=== PATIENT | female | born 1950 | race Caucasian/White ===

== ENCOUNTER 2018-04-08 12:47 | Inpatient (IN) | payer OTHER ==
[~2018-04-08] VITALS: Ht 172.7 cm; Wt 120.8 kg
[~2018-04-08 12:47] MED LIST: ESCITALOPRAM20 MG PO; FOLIC ACID 1 MG PO; HYDRODIURIL 112.5 M1 PO
[2018-04-08 13:22] LABS: ABSOLUTE BASOPHIL COUNT 0 /CUMM (0.0-0.2); ABSOLUTE EOSINOPHIL COUNT 0 /CUMM (0.0-0.7); ABSOLUTE GRANULOCYTE CT 5.9 /CUMM (1.4-6.5); ABSOLUTE LYMPH COUNT 1.2 /CUMM (1.2-3.4); ABSOLUTE MONOCYTE COUNT 0.5 /CUMM (0.10-0.60); BASOPHIL % 0.2 % (0.0-2.0); EOSINOPHIL % 0.4 % (0-5); GRANULOCYTE % 76.7 % (42.2-75.2); HEMATOCRIT 41.8 % (37-47); MEAN CORPUSCULAR VOLUME 87.8 FL (81.0-99.0); MEAN PLATELET VOLUME 7.8 FL (7.4-10.4); PLATELET COUNT 275 /CUMM (130-400); RED BLOOD CELL CT 4.76 /CUMM (4.20-5.40); WHITE BLOOD CELL COUNT 7.7 /CUMM (4.8-10.8)
--- NOTE | 2018-04-08 13:29 | ED DYSPNEA/ASTHMA COMPLAINT ---
History of Present Illness General Chief Complaint: Dyspnea (COPD, CHF, Other) Stated Complaint: SOB X 2WEEKS Source: patient Exam Limitations: no limitations Vital Signs & Intake/Output Vital Signs & Intake/Output Vital Signs Date Time Temp Pulse Resp B/P B/P Pulse O2 O2 Flow FiO2 Mean Ox Delivery Rate 04/08 1517 98.2 117 18 112/90 96 Room Air 04/08 1426 108 18 114/80 Nasal 2.0L Cannula 04/08 1424 116 118/74 04/08 1353 116 18 118/74 96 Room Air 04/08 1334 136 124/78 04/08 1320 98.2 136 18 124/78 96 Room Air 04/08 1303 153 24 98/67 97 Allergies Uncoded Allergies: ENVIRONMENTAL ALLERGIES (08/19/11) Reconcile Medications Alirocumab (Praluent Pen) 75 MG/ML PEN.INJCTR 1 INJ SC Q 2 WEEKS CHOLESTEROL (Reported) Escitalopram Oxalate 20 MG TABLET 1 TAB PO DAILY DEPRESSION (Reported) Hydrochlorothiazide 12.5 MG TABLET 1 TAB PO DAILY WATER RETENTION (Reported) Lisinopril 10 MG TABLET 1 TAB PO DAILY HEART (Reported) Triage Note: PER PT SOB X [address] DEMARCO HAD ECHO AND EKG SENT TO ED EKG IN ED AFIB WITH RVR 150'S DENIES CP 2 WEEKS AGO SYMPTOMS STARTED AT THAT TIME Triage Nurses Notes Reviewed? yes HPI: Patient presents for evaluation of shortness of breath and elevated heart rate. Patient states that she has felt shortness of breath, worse with exertion, for about 2 weeks. She saw her paper colorer today who determined she was in rapid atrial fibrillation. She was given a dose of XARALTO and by systolic by her paper colorer in the office but her tachycardia persisted. She was asked to go to the emergency department for heart rate control. Patient denies chest pain or leg pain. She states her ankles are mildly swollen recently. She generally uses 3 pillows to sleep. Patient states she cannot feel the tachycardia so cannot state when it began. (Annamarie FIGUEROA,Jagjit Castro) Past History Travel History Traveled to [place] past 21 day No Medical History Any Pertinent Medical History? see below for history Neurological: NONE EENT: allergies Cardiovascular: VARICOSE VEINS Respiratory: NONE Gastrointestinal: NONE Hepatic: NONE Renal: NONE Musculoskeletal: NONE Psychiatric: anxiety, depression Cancer(s): colon/rectal cancer Surgical History Surgical History: colon resection Psychosocial History What is your primary language Hungarian Tobacco Use: Never used Family History Hx Contributory? No (Annamarie FIGUEROA,Jagjit Castro) Review of Systems Review of Systems Constitutional: Reports: no symptoms. EENTM: Reports: no symptoms. Respiratory: Reports: see HPI. Cardiovascular: Reports: see HPI. GI: Reports: no symptoms. Genitourinary: Reports: no symptoms. Musculoskeletal: Reports: no symptoms. Skin: Reports: no symptoms. Neurological/Psychological: Reports: no symptoms. Hematologic/Endocrine: Reports: no symptoms. Immunologic/Allergic: Reports: no symptoms. All Other Systems: Reviewed and Negative (Annamarie FIGUEROA,Jagjit Castro) Physical Exam Physical Exam Respiratory: SEE BELOW Comments: Gen.: Well-nourished, well-developed, no acute respiratory distress while at rest. Head: Normocephalic, atraumatic. Eyes: Normal inspection bilaterally Ears: Normal inspection bilaterally Nose: Normal inspection Throat/mouth : Moist mucosa Neck: Supple, full range of motion, no goiter, no JVD Heart: Regular rate and rhythm, no murmurs rubs or gallops Lungs: Clear to auscultation bilaterally with normal air entry Chest: Nontender Back: Normal range of motion Abdomen: Soft, nontender, nondistended, normal bowel sounds Extremities: Normal range of motion grossly, equal radial pulses, no cyanosis, mild pretibial pitting edema bilaterally, calves nontender Neurologic: Cranial nerves grossly intact, speech is clear Skin: warm and dry Psychiatric: Calm, cooperative, no apparent delusions or hallucinations (Annamarie FIGUEROA,Jagjit Castro) Core Measures ACS in differential dx? No CVA/TIA Diagnosis No Sepsis Present: No Sepsis Focused Exam Completed? No (Jagjit Vaz DO) Progress Initial ED EKG: rate (161), AFIB Rhythm Strip: atrial fibrillation Comments: 04/08/2018 2:16:31 PM patient remains clinically stable with a significant improvement in heart rate. Additional Lopressor ordered. 04/08/2018 2:58:01 PM patient's heart rate ranges from just over 100 to just under 120. She appears comfortable clinically. Dr. Alex schulte. 04/08/2018 3:39:34 PM patient's case discussed with Dr. Livingston who recommends continuing the Lopressor for rate control in the absence of IV Cardizem. (Annamarie FIGUEROA,Jagjit Castro) Differential Diagnosis: AMI, CHF, COPD, pneumonia Plan of Care: Orders Procedure Date/time Status Heart Healthy Diet 04/08 D Active Patient Data 04/08 1604 Active ED Holding Orders 04/08 1556 Active Admit to inpatient 04/08 1556 Active Vital Signs 04/08 1556 Active Code Status 04/08 1556 Active Add-on Test (ER Only) 04/08 1329 Active TSH REFLEX 04/08 1312 Complete TROPONIN LEVEL 04/08 1312 Complete MAGNESIUM 04/08 1312 Complete COMPREHENSIVE METABOLIC PANEL 04/08 1312 Complete CBC WITHOUT DIFFERENTIAL 04/08 1312 Complete EKG 04/08 1250 Active Laboratory Tests 04/08/18 1312: Anion Gap 13, Estimated GFR > 60, BUN/Creatinine Ratio 18.9, Glucose 103 H, Calcium 9.4, Magnesium 1.7, Total Bilirubin 0.6, AST 20, ALT 37, Alkaline Phosphatase 86, Troponin I 0.02, Total Protein 7.0, Albumin 4.1, Globulin 2.9, Albumin/Globulin Ratio 1.4, TSH &T3 &Free T4 Intrp 1.370, CBC w Diff NO MAN DIFF REQ, RBC 4.76, MCV 87.8, MCH 29.0, MCHC 33.0, RDW 13.0, MPV 7.8, Gran % 76.7 H, Lymphocytes % 16.1 L, Monocytes % 6.6, Eosinophils % 0.4, Basophils % 0.2, Absolute Granulocytes 5.9, Absolute Lymphocytes 1.2, Absolute Monocytes 0.5, Absolute Eosinophils 0, Absolute Basophils 0 (Jagjit Vaz DO) Departure Departure Condition: Stable Referrals: Thien FIGUEROA,Adrian W. Departure Forms: Customer Survey General Discharge Information (Annamarie FIGUEROA,Jagjit Castro) Departure Disposition: STILL A PATIENT Clinical Impression Primary Impression: A-fib Comments 04/08/18 S.0. TO ME , NEW ONSET AFIB. Admission Note Spoke With: Jessica FIGUEROA,Heavenly Documentation of Exam: Documentation of any treatments & extenuating circumstances including Concerns Regarding Discharge (functional status, medication knowledge or non-compliance, living conditions, etc.) that warrant an admission rather than observation: [The patient needs admission for telemetry monitoring, cardiology consultation, serial troponins Patient was signed out to me by Dr. De Luna.] (Jagjit Vaz DO) Critical Care Note Critical Care Note Critical Care Time: non-applicable (Jagjit Vaz DO)
[2018-04-08] MEDS ORDERED: LISINOPRIL10 M1 PO (14:30)
[2018-04-08] MEDS ORDERED: ESCITALOPRAM OX20 MG PO (14:30)
[2018-04-08] MEDS ORDERED: HYDROCHLOROTH12.5 M2 PO (14:30)
[2018-04-08] MEDS ORDERED: PRALUENT P75 MG/1 ML SC (14:31)
--- NOTE | 2018-04-08 14:57 | RADIOLOGY REPORT ---
EXAMINATION: XR PORTABLE CHEST CLINICAL INFORMATION: Dyspnea. Rapid atrial fibrillation. COMPARISON: 12/18/2008 TECHNIQUE: Portable frontal view of the chest was obtained. FINDINGS: The lungs are well expanded. There is no consolidation, edema, or effusion. No pneumothorax. The cardiac silhouette is enlarged, particularly at the right atrium. This is increased from the previous study 10 years prior. IMPRESSION: Clear lungs. Enlarged cardiac silhouette, particularly at the right atrium.
--- NOTE | 2018-04-08 16:08 | History & Physical ---
Kamla FIGUEROA,[facility] 04/08/18 1608: General Information and HPI MD Statement: I have seen and personally examined SHEBA ARMENDARIZ and documented this H&P. The patient is a 68 year old F who presented with a patient stated chief complaint of [shortness of breath]. Source of Information: patient Exam Limitations: no limitations History of Present Illness: 68 yo F with PMH of varicose veins, hyperlipidemia, depression and colorectal cancer s/p resection was sent to the ED by her inspector health care facilities for evaluation. According to the patient she was at her inspector health care facilities office (Dr Woods), as she had been experiencing shortness of breath on rest and exertion for the past two weeks. She had an appointment to receive an injection for her high cholesterol. This is 2nd injection. First one was two weeks ago. She states that she gets severe muscle aches with statins and hence she was started on these injections. In the office her heart rate was found to be elevated. She was given a dose of Xarelto and Bysystolic, however, her high heart rate persisted and hence she was sent in to the ED for further management. Allergies/Medications Allergies: Uncoded Allergies: ENVIRONMENTAL ALLERGIES (08/19/11) Home Med list Alirocumab (Praluent Pen) 75 MG/ML PEN.INJCTR 1 INJ SC Q 2 WEEKS CHOLESTEROL (Reported) Escitalopram Oxalate 20 MG TABLET 1 TAB PO DAILY DEPRESSION (Reported) Hydrochlorothiazide 12.5 MG TABLET 1 TAB PO DAILY WATER RETENTION (Reported) Lisinopril 10 MG TABLET 1 TAB PO DAILY HEART (Reported) Past History Travel History Traveled to [place] past 21 day No Medical History Neurological: NONE EENT: allergies Cardiovascular: VARICOSE VEINS Respiratory: NONE Gastrointestinal: NONE Hepatic: NONE Renal: NONE Musculoskeletal: NONE Psychiatric: anxiety, depression Cancer(s): colon/rectal cancer Surgical History Surgical History: colon resection Review of Systems Review of Systems Constitutional: Denies: chills, fever. EENTM: Reports: no symptoms. Cardiovascular: Reports: palpitations. Denies: chest pain. Respiratory: Reports: short of breath. GI: Reports: no symptoms. Genitourinary: Reports: no symptoms. Musculoskeletal: Reports: no symptoms. Skin: Reports: no symptoms. Neurological/Psychological: Reports: no symptoms. Exam & Diagnostic Data Last 24 Hrs of Vital Signs/I&O Vital Signs Date Time Temp Pulse Resp B/P B/P Pulse O2 O2 Flow FiO2 Mean Ox Delivery Rate 04/08 1517 98.2 117 18 112/90 96 Room Air 04/08 1426 108 18 114/80 Nasal 2.0L Cannula 04/08 1424 116 118/74 04/08 1353 116 18 118/74 96 Room Air 04/08 1334 136 124/78 04/08 1320 98.2 136 18 124/78 96 Room Air 04/08 1303 153 24 98/67 97 Intake & Output 04/08 1600 04/08 0800 04/08 0000 Intake Total 0 Output Total 0 Balance 0 Intake, Oral 0 Output, Urine 0 Patient 160 lb Weight Physical Exam General Appearance Alert, Oriented X3, Cooperative, No Acute Distress Skin No Rashes, No Breakdown Skin Temp/Moisture Exam: Warm/Dry Sepsis Skin Exam (color): Normal for Ethnicity HEENT Atraumatic Cardiovascular Normal S1, Normal S2, No Murmurs, tachycardic, irregular Lungs Clear to Auscultation, Normal Air Movement Abdomen Soft, No Tenderness Neurological Normal Speech Extremities No Edema Last 24 Hrs of Labs/Otto: Laboratory Tests 04/08/18 1312: Anion Gap 13, Estimated GFR > 60, BUN/Creatinine Ratio 18.9, Glucose 103 H, Calcium 9.4, Magnesium 1.7, Total Bilirubin 0.6, AST 20, ALT 37, Alkaline Phosphatase 86, Troponin I 0.02, Total Protein 7.0, Albumin 4.1, Globulin 2.9, Albumin/Globulin Ratio 1.4, TSH &T3 &Free T4 Intrp 1.370, CBC w Diff NO MAN DIFF REQ, RBC 4.76, MCV 87.8, MCH 29.0, MCHC 33.0, RDW 13.0, MPV 7.8, Gran % 76.7 H, Lymphocytes % 16.1 L, Monocytes % 6.6, Eosinophils % 0.4, Basophils % 0.2, Absolute Granulocytes 5.9, Absolute Lymphocytes 1.2, Absolute Monocytes 0.5, Absolute Eosinophils 0, Absolute Basophils 0 Assessment/Plan Assessment: 68 yo F with PMH of varicose veins, hyperlipidemia, depression was sent to the ED by her inspector health care facilities for evaluation. In the ED the patient received IV 5mg metoprolol x1 and IV 2.5mg metoprolol x1. Assessment: 1. New Onset Atrial Fibrilliation 2. Prolonged QTc of 498 3. History of Hyperlipidemia 4. History of Depression Plan: * Admit patient to telemetry for monitoring of heart rate. * R/o ACS with serial trops and EKGs. * Will start her on metoprolol 25mg BID. * Per conversation with Dr Livingston, the patient has already received first dose of Xarelto so no need for IV heparin at this time. * Cardio consult in am. * She can be restarted on Xarelto for tomorrow. * Avoid QTc prolonging agents. * Continue Lexapro, HCTZ and Lisinopril. * Diet: Heart Healthy * DVT Prophylaxis: On Xarelto * Code: Full Code As Ranked By This Provider Problem List: 1. A-fib Core Measures/Misc (08/04) Acute Coronary Syndrome ACS Diagnosis: No Congestive Heart Failure Congestive Heart Failure Diagnosis No Cerebrovascular Accident CVA/TIA Diagnosis: No VTE (View Protocol) VTE Risk Factors Age>40 No Mechanical VTE Prophylaxis d/t N/A MechProphylax Ordered No VTE Pharm Prophylaxis d/t NA PharmProphylax ordered Sepsis (View protocol) Sepsis Present: No If YES complete Sepsis Event Note If YES complete Sepsis Event Note Luis Gonzalez 04/08/18 1610: Core Measures/Misc (08/04) Sepsis (View protocol) If YES complete Sepsis Event Note If YES complete Sepsis Event Note Resident Review Statement Resident Statement: examined this patient, discussed with video production intern, agreed with video production intern, discussed with family, reviewed EMR data (avail) Other Findings: This is a 68 YO lady with PMH significant for HTN, hyperlipidemia, colorectal cancer, depression, anxiety who was sent to the ED from inspector health care facilities's office for rate control of new onset atrial fibrillation. According to the patient, she is been having dyspnea for the past 2 weeks with episodes of palpitation. She visited her inspector health care facilities's office (Dr. Woods) today. She was noted to be in atrial fibrillation with rapid ventricular rate. She was given xarelto 20 mg 1 and Bystolic. Her heart rate continued to be elevated therefore she was referred to the emergency room for further treatment and rate control. At the time of our interview, she denies any chest pain, headache, dizziness, lightheadedness, shortness of breath, nausea, vomiting, abdominal pain, urinary symptoms. Please see above for more details. While in the ED, the patient received 5 mg Lopressor IV 1 and 2.5 mg Lopressor IV 1. Physical exam on admission: Temperature 98.5, pulse rate 104, respiratory rate 17, blood pressure 120/78, oxygen saturation 96% on 2 L nasal cannula oxygen. NAD, AO 3, HEENT: H NCAT, PERRLA, EOMI, normal pharynx. Neck: Supple, no JVD, no carotid bruit, Lungs: CTA BL. CV: Irregularly irregular. Abdomen: Normal bowel sounds, soft, NT, ND. Extremities: No edema, pulses normal and symmetrical. Neurology: Without focal neurologic deficits. CBC and BEP unremarkable, troponin negative. EKG: Atrial fibrillation with RVR, rate 161, QTC 498, no significant ST-T wave abnormalities. Chest x-ray:Clear lungs. Enlarged cardiac silhouette, particularly at the right atrium. Problem list: #New-onset A. fib with RVR #Hypertension, hyperlipidemia, anxiety Plan: no indication to start the patient on IV heparin at this point given she received Xarelto in the office. We'll continue Xarelto, will start the patient on metoprolol 25 twice a day for rate control. Reassess tomorrow. is improved to 120s, we have started the patient on metoprolol; to avoid significant drop in blood pressure, we will hold lisinopril and hydrochlorothiazide at this point. Please monitor blood pressure closely and reassess when to restart above medications.
[2018-04-08 17:40] VITALS: BP 128/78
--- NOTE | 2018-04-08 18:18 | PN- Att Addend ---
Attending Addendum Attending Brief Note Patient seen and examined. Plan of care discussed with the medical team and the patient. Available lab work and radiology test reports were reviewed. This is 68-year-old the female with history of prior colorectal cancer, depression and anxiety and history of varicose vein who was discovered to have new onset A. fib and was sent in hospital by her game technician. She was given in doses are all to any office. Patient did not feel any palpitations. She has been feeling somewhat tired and the short of breath. She denies any recent fever chills or any chest pains belly pain nausea vomiting or diarrhea. She does report having mild ankle swelling. Exam: General: Patient awake alert oriented without any distress CVS: S1 plus S2 without any murmur or gallops Chest: Few scattered crepitation without any wheeze. There is no respiratory distress. Abdomen: Soft non-tender, bowel sound present, no guarding or rebound BLOCK MACHINE OPERATOR: Awake alert oriented without any focal neuro deficit and follows commands appropriately Extremities: Slight bilateral edema; no clubbing or cyanosis noted Assessment * New onset A. fib with rapid heart rate * Transient hypotension-improved * History of colorectal cancer * History of varicose veins Plan * Admit to telemetry * Cardiology consult * Echocardiogram in a.m. * Continue Lopressor * Rule out CT protocol * Patient's SOY VASC score is 3. She likely will need anticoagulation. Begin IV heparin. Laboratory Tests 04/08/18 1312: Anion Gap 13, Estimated GFR > 60, BUN/Creatinine Ratio 18.9, Glucose 103 H, Calcium 9.4, Magnesium 1.7, Total Bilirubin 0.6, AST 20, ALT 37, Alkaline Phosphatase 86, Troponin I 0.02, Total Protein 7.0, Albumin 4.1, Globulin 2.9, Albumin/Globulin Ratio 1.4, TSH &T3 &Free T4 Intrp 1.370, CBC w Diff NO MAN DIFF REQ, RBC 4.76, MCV 87.8, MCH 29.0, MCHC 33.0, RDW 13.0, MPV 7.8, Gran % 76.7 H, Lymphocytes % 16.1 L, Monocytes % 6.6, Eosinophils % 0.4, Basophils % 0.2, Absolute Granulocytes 5.9, Absolute Lymphocytes 1.2, Absolute Monocytes 0.5, Absolute Eosinophils 0, Absolute Basophils 0 Vital Signs Date Time Temp Pulse Resp B/P B/P Pulse O2 O2 Flow FiO2 Mean Ox Delivery Rate 04/08 1740 98.5 104 17 128/78 96 Nasal 2.0L Cannula 04/08 1725 98.2 117 18 112/90 04/08 1517 98.2 117 18 112/90 96 Room Air 04/08 1426 108 18 114/80 Nasal 2.0L Cannula 04/08 1424 116 118/74 04/08 1353 116 18 118/74 96 Room Air 04/08 1334 136 124/78 04/08 1320 98.2 136 18 124/78 96 Room Air 04/08 1303 153 24 98/67 97 Intake & Output 04/08 1600 04/08 0800 04/08 0000 Intake Total 0 Output Total 0 Balance 0 Intake, Oral 0 Output, Urine 0 Patient 160 lb Weight Medical History Any Pertinent Medical History? see below for history Neurological: NONE EENT: allergies Cardiovascular: VARICOSE VEINS Respiratory: NONE Gastrointestinal: NONE Hepatic: NONE Renal: NONE Musculoskeletal: NONE Psychiatric: anxiety, depression Cancer(s): colon/rectal cancer Surgical History Surgical History: colon resection Psychosocial History What is your primary language [place]ese Tobacco Use: Never used Family history unremarkable Chest x-ray does not show any acute CHF.
--- NOTE | 2018-04-08 18:18 | Admission Certification ---
Admission Certification Certification Statement - As attending physician, I certify that at the time of - admission, based on clinical presentation, severity of - symptoms, need for further diagnostic testing and - therapeutic interventions, and risk of adverse outcomes - without in-hospital treatment, in my clinical assessment, - this patient requires an acute hospital stay for a minimum - of two nights or longer. I have also considered psychsocial - factors such as support system, advanced age, financial - issues, cognitive issues, and failed out-patient treatments, - past re-admission history, safety of patient, and lack of - compliance as applicable. Specific rationale supporting this admission is: New onset rapid A. fib
[2018-04-08 23:25] VITALS: BP 100/78
[2018-04-09 06:43] VITALS: BP 141/75
--- NOTE | 2018-04-09 07:08 | PN- Housestaff ---
Kamla FIGUEROA,[facility] 04/09/18 0708: Subjective Follow-up For: Mc Tele-Events Since Last Visit: Mc with HR 98-103 Subjective: Feels well. States her shortness of breath has improved. When she ambulates her heart rate goes up and she can feel palpitations. No other complaints at this time. Review of Systems Constitutional: Reports: no symptoms. Objective Last 24 Hrs of Vital Signs/I&O Vital Signs Date Time Temp Pulse Resp B/P B/P Pulse O2 O2 Flow FiO2 Mean Ox Delivery Rate 04/09 1101 115 112/80 04/09 1100 115 112/80 04/09 0801 108 141/75 04/09 0643 97.9 96 20 141/75 99 Room Air 04/09 0000 Room Air 04/08 2325 98.4 91 18 100/78 93 Room Air 04/08 1834 96 Nasal 2.0L Cannula 04/08 1740 98.5 104 17 128/78 96 Nasal 2.0L Cannula 04/08 1725 98.2 117 18 112/90 04/08 1517 98.2 117 18 112/90 96 Room Air 04/08 1426 108 18 114/80 Nasal 2.0L Cannula 04/08 1424 116 118/74 04/08 1353 116 18 118/74 96 Room Air 04/08 1334 136 124/78 04/08 1320 98.2 136 18 124/78 96 Room Air 04/08 1303 153 24 98/67 97 Intake & Output 04/09 1600 04/09 0800 04/09 0000 Intake Total 120 Output Total Balance 120 Intake, Oral 120 Patient 264 lb Weight Weight Bed scale Measurement Method Physical Exam General Appearance: Alert, Oriented X3, Cooperative, No Acute Distress Skin: No Rashes, No Breakdown Skin Temp/Moisture Exam: Warm/Dry Sepsis Skin Exam (color): Normal for Ethnicity HEENT: Atraumatic Cardiovascular: Normal S1, Normal S2, No Murmurs Lungs: Clear to Auscultation, Normal Air Movement Abdomen: Soft, No Tenderness Neurological: Normal Speech Extremities: No Edema Last 24 Hrs of Lab/Otto Results Last 24 Hrs of Labs/Mics: Laboratory Tests 04/09/18 1122: Sodium Pending, Potassium Pending, Chloride Pending, Carbon Dioxide Pending, Anion Gap Pending, BUN Pending, Creatinine Pending, BUN/Creatinine Ratio Pending 04/09/18 0125: Magnesium Pending, Troponin I 0.02 04/08/18 2030: Troponin I 0.02 04/08/18 1312: Anion Gap 13, Estimated GFR > 60, BUN/Creatinine Ratio 18.9, Glucose 103 H, Calcium 9.4, Magnesium 1.7, Total Bilirubin 0.6, AST 20, ALT 37, Alkaline Phosphatase 86, Troponin I 0.02, Total Protein 7.0, Albumin 4.1, Globulin 2.9, Albumin/Globulin Ratio 1.4, TSH &T3 &Free T4 Intrp 1.370, CBC w Diff NO MAN DIFF REQ, RBC 4.76, MCV 87.8, MCH 29.0, MCHC 33.0, RDW 13.0, MPV 7.8, Gran % 76.7 H, Lymphocytes % 16.1 L, Monocytes % 6.6, Eosinophils % 0.4, Basophils % 0.2, Absolute Granulocytes 5.9, Absolute Lymphocytes 1.2, Absolute Monocytes 0.5, Absolute Eosinophils 0, Absolute Basophils 0 Assessment/Plan Assessment: 68 yo F with PMH of varicose veins, hyperlipidemia, depression was sent to the ED by her mounted police for evaluation. In the ED the patient received IV 5mg metoprolol x1 and IV 2.5mg metoprolol x1. Assessment: 1. New Onset Atrial Fibrilliation 2. Prolonged QTc of 498 3. History of Hyperlipidemia 4. History of Depression Plan: * Continue monitoring on telemetry for now. * ACS was ruled out with serial trops and EKGs. * Will increase her metoprolol to 50mg BID. * Continue Xarelto 20mg daily. * Echocardiogram - pending * Possible GARETH depending upon clinical course. * Avoid QTc prolonging agents. * Continue Lexapro, HCTZ and Lisinopril. * Diet: Heart Healthy * DVT Prophylaxis: On Xarelto * Code: Full Code Problem List: 1. A-fib Pain Ratin Pain Location: none Pain Goal: Remain pain free Pain Plan: none Tomorrow's Labs & Rationales: BEP, Mg Mansi Noguera 04/09/18 1331: Attending Review Statement Attending Statement Attending MD Statement: examined this patient, discuss w/resident/PA/SWITCHBOARD RECEPTIONIST, agreed w/resident/PA/SWITCHBOARD RECEPTIONIST, discussed with family, reviewed EMR data (avail), discussed with nursing, discussed with case mgmt, reviewed images, amended to note Attending Assessment/Plan: Patient with morbid obesity BMI 40 comes with new onset afib. Patient on metoprolol for rate control and xarelto for a/c as per cardilogy recommendations. ECHO as per cardiology. Continue monitor on telemetry and follow cardiology.
--- NOTE | 2018-04-09 08:07 | Patient Discharge Instructions ---
Discharge Instructions General Discharge Information You were seen/treated for: Atrial Fibrilliation Special Instructions: Please follow up with your PCP and manager embalmer funeral director within one week of discharge. Diet Continue normal diet: Yes Activity Full Activity/No Limits: Yes Acute Coronary Syndrome Inclusion Criteria At DC or during hospital stay patient has or had the following: ACS DIAGNOSIS No Discharge Core Measures Meds if any: Prescribed or Continued at Discharge Meds if any: NOT Prescribed or Continued at Discharge Congestive Heart Failure Inclusion Criteria At DC or during hospital stay patient has or had the following: CHF DIAGNOSIS No Discharge Core Measures Meds if any: Prescribed or Continued at Discharge Meds if any: NOT Prescribed or Continued at Discharge Cerebrovascular accident Inclusion Criteria At DC or during hospital stay patient has or had the following: CVA/TIA Diagnosis No Discharge Core Measures Meds if any: Prescribed or Continued at Discharge Meds if any: NOT Prescribed or Continued at Discharge Venous thromboembolism Inclusion Criteria VTE Diagnosis No VTE Type NONE VTE Confirmed by (Test) NONE Discharge Core Measures - Per Current guidelines, there needs to be overlap - treatment for the first 5 days of Warfarin therapy. - If discharged on Warfarin prior to 5 days of - overlap therapy, the patient will need to be - assessed for post discharge needs including - *Post discharge parental anticoagulation - *Warfarin and/or parental anticoagulation education - *Follow up date to check INR post discharge At least 5 days overlap therapy as Inpatient No Meds if any: Prescribed or Continued at Discharge Note: Overlap Therapy is Warfarin and Anticoagulant Meds if any: NOT Prescribed or Continued at Discharge
[2018-04-09 11:00] VITALS: BP 112/80
--- NOTE | 2018-04-09 12:21 | Cons- Cardiology ---
General Information and HPI Consulting Request Date of Consult: 04/09/18 Requested By: Jessica FIGUEROA,Heavenly Reason for Consult: Atrial fibrillation Source of Information: patient, old records History of Present Illness: This is a 68-year-old female with past medical history of hyperlipidemia intolerant to statin therapy, colorectal cancer with prior resection, hypertension, and depression who recently had been experiencing some increased shortness of breath at rest and with exertion over the past 2 weeks. She denies associated chest pain or significant palpitations. She was found to be in atrial fibrillation in our office with possible new LV dysfunction by limited bedside echo and was sent to the hospital for further evaluation. She denies orthopnea but does have some intermittent ankle edema. She denies headache, slurring of speech, visual changes, syncope, or subjective fever. Allergies/Medications Allergies: Uncoded Allergies: ENVIRONMENTAL ALLERGIES (08/19/11) Home Med List: Alirocumab (Praluent Pen) 75 MG/ML PEN.INJCTR 1 INJ SC Q 2 WEEKS CHOLESTEROL (Reported) Escitalopram Oxalate 20 MG TABLET 1 TAB PO DAILY DEPRESSION (Reported) Hydrochlorothiazide 12.5 MG TABLET 1 TAB PO DAILY WATER RETENTION (Reported) Lisinopril 10 MG TABLET 1 TAB PO DAILY HEART (Reported) Current Medications: Current Medications Sig/Crystal Start time Last Medication Dose Route Stop Time Status Admin Escitalopram Oxalate 20 MG DAILY 04/09 0900 AC 04/09 PO 1006 Hydrochlorothiazide 12.5 MG DAILY 04/09 0900 AC 04/09 PO 1101 Lisinopril 10 MG DAILY 04/09 0900 AC 04/09 PO 1101 Metoprolol Tartrate 0 .STK-MED ONE 04/08 1732 DC PO Metoprolol Tartrate 25 MG BID 04/08 1715 AC 04/09 PO 0801 Metoprolol Tartrate 0 .STK-MED ONE 04/08 1425 DC IV Metoprolol Tartrate 2.5 MG ONCE ONE 04/08 1415 DC 04/08 IV 04/08 1416 1424 Metoprolol Tartrate 0 .STK-MED ONE 04/08 1334 DC IV Metoprolol Tartrate 5 MG ONCE ONE 04/08 1330 DC 04/08 IV 04/08 1331 1334 Review of Systems Review of Systems: Review of systems as per HPI. The remainder of a 10 point review of systems was reviewed and was otherwise negative. 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 Home Services at Home: None Smoking Status: Never Smoked Exam & Diagnostic Data Vital Signs and I&O Vital Signs Date Time Temp Pulse Resp B/P B/P Pulse O2 O2 Flow FiO2 Mean Ox Delivery Rate 04/09 1101 115 112/80 04/09 1100 115 112/80 04/09 0801 108 141/75 04/09 0643 97.9 96 20 141/75 99 Room Air 04/09 0000 Room Air 04/08 2325 98.4 91 18 100/78 93 Room Air 04/08 1834 96 Nasal 2.0L Cannula 04/08 1740 98.5 104 17 128/78 96 Nasal 2.0L Cannula 04/08 1725 98.2 117 18 112/90 04/08 1517 98.2 117 18 112/90 96 Room Air 04/08 1426 108 18 114/80 Nasal 2.0L Cannula 04/08 1424 116 118/74 04/08 1353 116 18 118/74 96 Room Air 04/08 1334 136 124/78 04/08 1320 98.2 136 18 124/78 96 Room Air 04/08 1303 153 24 98/67 97 Intake & Output 04/09 1600 04/09 0800 04/09 0000 04/08 1600 04/08 0800 04/08 0000 Intake Total 120 0 Output Total 0 Balance 120 0 Intake, Oral 120 0 Output, Urine 0 Patient 264 lb 160 lb Weight Weight Bed scale Measurement Method Physical Exam: General: no apparent distress. Alert. Overweight Eyes: No obvious scleral icterus. HEENT: No jugular venous distention or abnormal jugular venous pulsations. Cardiovascular: Normal intensity S1/S2. Irregular Respiratory: Lungs clear to auscultation bilaterally. Abdomen: Soft, nontender with no guarding or rebound tenderness. Musculoskeletal: No clubbing or cyanosis noted; no edema Skin: warm Neurologic: No gross focal deficits noted. Lymph: No gross lymphadenopathy. Labs/Otto Results: Laboratory Tests 04/09 04/09 04/08 1122 0125 2030 Chemistry Sodium Pending Potassium Pending Chloride Pending Carbon Dioxide Pending Anion Gap Pending BUN Pending Creatinine Pending BUN/Creatinine Ratio Pending Magnesium (1.6 - 2.3 mg/dL) 1.8 Troponin I (< 0.11 ng/ml) 0.02 0.02 04/08 1312 Chemistry Sodium (137 - 145 mmol/L) 143 Potassium (3.5 - 5.1 mmol/L) 3.9 Chloride (98 - 107 mmol/L) 100 Carbon Dioxide (22 - 30 mmol/L) 30 Anion Gap (5 - 16) 13 BUN (7 - 17 mg/dL) 17 Creatinine (0.5 - 1.0 mg/dL) 0.9 Estimated GFR (>60 ml/min) > 60 BUN/Creatinine Ratio (7 - 25 %) 18.9 Glucose (65 - 99 mg/dL) 103 H Calcium (8.4 - 10.2 mg/dL) 9.4 Magnesium (1.6 - 2.3 mg/dL) 1.7 Total Bilirubin (0.2 - 1.3 mg/dL) 0.6 AST (14 - 36 U/L) 20 ALT (9 - 52 U/L) 37 Alkaline Phosphatase (<127 U/L) 86 Troponin I (< 0.11 ng/ml) 0.02 Total Protein (6.3 - 8.2 g/dL) 7.0 Albumin (3.5 - 5.0 g/dL) 4.1 Globulin (1.9 - 4.2 gm/dL) 2.9 Albumin/Globulin Ratio (1.1 - 2.2 %) 1.4 TSH &T3 &Free T4 Intrp (0.270 - 4.20 uIU/mL) 1.370 Hematology CBC w Diff NO MAN DIFF REQ WBC (4.8 - 10.8 /CUMM) 7.7 RBC (4.20 - 5.40 /CUMM) 4.76 Hgb (12.0 - 16.0 G/DL) 13.8 Hct (37 - 47 %) 41.8 MCV (81.0 - 99.0 FL) 87.8 MCH (27.0 - 31.0 PG) 29.0 MCHC (33.0 - 37.0 G/DL) 33.0 RDW (11.5 - 14.5 %) 13.0 Plt Count (130 - 400 /CUMM) 275 MPV (7.4 - 10.4 FL) 7.8 Gran % (42.2 - 75.2 %) 76.7 H Lymphocytes % (20.5 - 51.1 %) 16.1 L Monocytes % (1.7 - 9.3 %) 6.6 Eosinophils % (0 - 5 %) 0.4 Basophils % (0.0 - 2.0 %) 0.2 Absolute Granulocytes (1.4 - 6.5 /CUMM) 5.9 Absolute Lymphocytes (1.2 - 3.4 /CUMM) 1.2 Absolute Monocytes (0.10 - 0.60 /CUMM) 0.5 Absolute Eosinophils (0.0 - 0.7 /CUMM) 0 Absolute Basophils (0.0 - 0.2 /CUMM) 0 Diagnostic Data EKG Results Tracing was personally reviewed and shows atrial fibrillation at 97 bpm with possible LVH CXR Results No CHF; possible cardiomegaly Other Results Telemetry tracings were personally reviewed and show atrial relation with borderline ventricular response rate Assessment/Plan Assessment/Plan 1. New onset atrial fibrillation with concern for possible new onset LV dysfunction 2. Hyperlipidemia with statin intolerance started on Praluent 3. History of hypertension 4. History of depression 5. History of colorectal cancer with prior resection 6. Overweight The patient presents with shortness of breath likely due to recent onset atrial fibrillation. Obtain a full echocardiogram as a reported limited echo in the office was concerning for possible new LV dysfunction. Recommend increasing the metoprolol to 50 mg p.o. twice daily. Start Xarelto 20 mg p.o. daily. Depending on clinical response she may be a candidate for GARETH cardioversion. Monitor fluid status closely but she currently does not appear to be decompensated congestive heart failure. Hernan Smith MD [facility] Consult Acknowledgment - Thank you for your consult request.
[2018-04-09 13:46] VITALS: BP 96/68
--- NOTE | 2018-04-09 13:58 | ECHOCARDIOGRAM REPORT ---
SHEBA ARMENDARIZ Age: 68 : 1950 Gender: F Exam Date: 04/09/2018 10:10 Exam Location: 1 [address] Ht (in): 67 Wt (lb): 261 BSA: 2.42 BP: 128 / 78 Ordering Physician: Omayra Gonzalez, Referring Physician: Omayra Gonzalez, Technologist: Phan Green [facility] Room Number: [id number] Indications: AFIB/FLUTTER Rhythm: Technical Quality: Fair FINDINGS Left Ventricle Left ventricular cavity size normal. Left ventricular wall thickness mildly increased. Mildly reduced global left ventricular systolic function. Mildly abnormal left ventricular ejection fraction estimated at 40-45%. Right Ventricle Right ventricle not well visualized, grossly normal. Right Atrium Mild right atrial dilatation. Left Atrium Moderate left atrial dilatation. Mitral Valve Mild mitral annular calcification. Mild mitral regurgitation. Aortic Valve Diffuse thickening (sclerosis) of the aortic valve cusps without reduced excursion. Tricuspid Valve Structurally normal tricuspid valve. Mild tricuspid regurgitation. Unable to estimate the right ventricular systolic pressure. Pulmonic Valve Pulmonic valve not well visualized, grossly normal. Pericardium No pericardial effusion. Great Vessels Normal size aortic root. CONCLUSIONS Left ventricular cavity size normal. Left ventricular wall thickness mildly increased. Mildly reduced global left ventricular systolic function. Mildly abnormal left ventricular ejection fraction estimated at 40-45%. Right ventricle not well visualized, grossly normal. Mild right atrial dilatation. Moderate left atrial dilatation. No pericardial effusion. Chris Smith M.D. (Electronically Signed) Final Date: 09 Apr 2018 13:58 MEASUREMENTS (Male / Female) Normal Values 2D ECHO LV Diastolic Diameter PLAX 5.1 cm 4.2 - 5.9 / 3.9 - 5.3 cm LV Systolic Diameter PLAX 4.0 cm 2.1 - 4.0 cm LV Fractional Shortening PLAX 21.6 % 25 - 46 % LV Ejection Fraction 2D Teich 43.5 % IVS Diastolic Thickness 1.2 cm LVPW Diastolic Thickness 1.2 cm LV Relative Wall Thickness 0.5 RV Internal Dim ED PLAX 4.3 cm 1.9 - 3.8 cm LVOT Diameter 2.0 cm Aortic Root Diameter 2.7 cm LA Systolic Diameter LX 5.2 cm 3.0 - 4.0 / 2.7 - 3.8 cm Ascending Aorta Diameter 3.4 cm DOPPLER AV Peak Velocity 144.0 cm/s AV Peak Gradient 8.3 mmHg AV Mean Velocity 99.1 cm/s AV Mean Gradient 5.0 mmHg AV Velocity Time Integral 26.7 cm LVOT Peak Velocity 82.7 cm/s LVOT Peak Gradient 2.7 mmHg LVOT Mean Velocity 51.2 cm/s LVOT Mean Gradient 1.0 mmHg LVOT Velocity Time Integral 14.9 cm LVOT Stroke Volume 46.8 cm AV Area Cont Eq vti 1.8 cm AV Area Cont Eq pk 1.8 cm MV Peak Velocity 104.0 cm/s MV Peak Gradient 4.3 mmHg MV Mean Velocity 57.7 cm/s MV Mean Gradient 2.0 mmHg Mitral E Point Velocity 108.0 cm/s MV PHT Velocity 98.0 cm/s MV Deceleration [place] 221.0 cm/s MV Pressure Half Time 133.0 ms MV Area PHT 1.7 cm MV Deceleration Time 197.0 ms MR Peak Velocity 500.5 cm/s MR Peak Gradient 100.2 mmHg TR Peak Velocity 238.0 cm/s TR Peak Gradient 22.7 mmHg Right Atrial Pressure 5.0 mmHg Pulmonary Artery Systolic Pressu 27.7 mmHg Right Ventricular Systolic Press 27.7 mmHg PV Peak Velocity 95.1 cm/s PV Peak Gradient 3.6 mmHg PV Mean Velocity 66.0 cm/s PV Mean Gradient 2.0 mmHg PV Velocity Time Integral 18.5 cm LV E' Lateral Velocity 9.9 cm/s Mitral E to LV E' Lateral Ratio 10.9 LV E' Septal Velocity 7.8 cm/s Mitral E to LV E' Septal Ratio 13.8
[2018-04-09 15:00] VITALS: BP 110/80
[2018-04-09 22:44] VITALS: BP 112/82
[2018-04-10 06:47] VITALS: BP 118/80
--- NOTE | 2018-04-10 07:07 | PN- Housestaff ---
Kamla FIGUEROA,[facility] 04/10/18 0707: Subjective Follow-up For: New Onset Atrial Fibrilliation Tele-Events Since Last Visit: Mc with HR 98-109 Subjective: Feels well overall. States this morning she woke up feeling a little short of breath which shortly. Denies having chest pain, palpitations or any other associated symptoms. Review of Systems Constitutional: Reports: no symptoms. Objective Last 24 Hrs of Vital Signs/I&O Vital Signs Date Time Temp Pulse Resp B/P B/P Pulse O2 O2 Flow FiO2 Mean Ox Delivery Rate 04/10 0647 97.7 105 18 118/80 94 Room Air 04/09 2244 98.6 94 18 112/82 92 Room Air 04/09 2112 97 110/72 04/09 1526 109 110/80 04/09 1500 97.9 122 20 110/80 93 04/09 1346 118 96/68 04/09 1101 115 112/80 04/09 1100 115 112/80 04/09 0801 108 141/75 Intake & Output 04/10 0800 04/10 0000 04/09 1600 Intake Total 50 390 700 Output Total Balance 50 390 700 Intake, IV 100 Intake, Oral 50 290 700 Patient 265 lb Weight Weight Bed scale Measurement Method Physical Exam General Appearance: Alert, Oriented X3, Cooperative, No Acute Distress Skin: No Rashes, No Breakdown Skin Temp/Moisture Exam: Warm/Dry Sepsis Skin Exam (color): Normal for Ethnicity HEENT: Atraumatic Cardiovascular: Normal S1, Normal S2, No Murmurs, tachycardic, irregular Lungs: Clear to Auscultation, Normal Air Movement Abdomen: Soft, No Tenderness Neurological: Normal Speech Extremities: No Edema Last 24 Hrs of Lab/Otto Results Last 24 Hrs of Labs/Mics: Laboratory Tests 04/10/18 0617: Sodium Pending, Potassium Pending, Chloride Pending, Carbon Dioxide Pending, Anion Gap Pending, BUN Pending, Creatinine Pending, BUN/Creatinine Ratio Pending , Magnesium Pending 04/09/18 1122: Anion Gap 12, Estimated GFR > 60, BUN/Creatinine Ratio 22.2 Assessment/Plan Assessment: 68 yo F with PMH of varicose veins, hyperlipidemia, depression was sent to the ED by her research phlebotomist for evaluation. In the ED the patient received IV 5mg metoprolol x1 and IV 2.5mg metoprolol x1. Assessment: 1. New Onset Atrial Fibrilliation 2. Prolonged QTc of 498 3. History of Hyperlipidemia 4. History of Depression Plan: * Continue monitoring on telemetry. * ACS was ruled out with serial trops and EKGs on admission * Will increase her metoprolol to 50mg TID. * PO Digoxin 0.25mg is added BID for 4 doses. * Continue Xarelto 20mg daily. * Echocardiogram - abnormal LVEF at 40-45%. * Possible GARETH tomorrow depending upon clinical course. Will make her NPO overnight. * Avoid QTc prolonging agents. * Continue Lexapro, HCTZ and Lisinopril. * Diet: Heart Healthy * DVT Prophylaxis: On Xarelto * Code: Full Code Problem List: 1. A-fib Pain Ratin Pain Location: none Pain Goal: Remain pain free Pain Plan: none Tomorrow's Labs & Rationales: BEP, Mg Poornima,Mansi 04/10/18 1350: Attending MD Review Statement Attending Statement Attending MD Statement: examined this patient, discuss w/resident/PA/WALL SCRAPER, agreed w/resident/PA/WALL SCRAPER, discussed with family, reviewed EMR data (avail), discussed with nursing, discussed with case mgmt, reviewed images, amended to note Attending Assessment/Plan: Patient with morbid obesity BMI 40 comes with new onset afib. HR uncontrolled overnight. Only complaint is shortness of breath on exertion. AFIB: Patient on metoprolol for rate control and xarelto for a/c as per cardilogy recommendations. Increased to 50 tid. add digoxin and monitor HR. Plan for cardioversion tomorrow celeste scheduled. CHF systolic likely tachycardia induced cardiomyopathy ECHO . Mildly reduced global left ventricular systolic function. Mildly abnormal left ventricular ejection fraction estimated at 40-45%. Continue monitor on telemetry and follow cardiology.
--- NOTE | 2018-04-10 09:27 | PN- Cardiology ---
Subjective Subjective: Telemetry reviewed. Atrial fibrillation with ventricular rate. 120. Patient feels well. Objective Vital Signs and I&Os Vital Signs Date Time Temp Pulse Resp B/P B/P Pulse O2 O2 Flow FiO2 Mean Ox Delivery Rate 04/10 824 143 118/80 04/10 08 143 118/80 04/10 0647 97.7 105 18 118/80 94 Room Air 04/09 2244 98.6 94 18 112/82 92 Room Air 04/09 2112 97 110/72 04/09 1526 109 110/80 04/09 1500 97.9 122 20 110/80 93 04/09 1346 118 96/68 04/09 1101 115 112/80 04/09 1100 115 112/80 Intake & Output 04/10 1600 04/10 0804/10 0000 04/09 1600 04/09 0804/09 0000 Intake Total 50 390 700 120 Output Total Balance 50 390 700 120 Intake, IV 100 Intake, Oral 50 290 700 120 Patient 265 lb 264 lb Weight Weight Bed scale Bed scale Measurement Method Physical Exam: On physical exam vital signs noted Head normocephalic atraumatic Eyes sclera anicteric conjunctiva showed no pallor extraocular muscles were normal Neck no carotid bruits no jugular venous distention no thyroid masses no palpable nodes Chest lungs were clear bilaterally Heart irregular rhythm with a ventricular rate around 100. Abdomen soft protuberant bowel sounds normal Extremities no clubbing cyanosis or edema Neurological no gross motor or sensory deficits Current Medications: Current Medications Sig/Crystal Start time Last Medication Dose Route Stop Time Status Admin Docusate Sodium 100 MG DAILY 04/10 09 AC 04/10 PO 08 Escitalopram Oxalate 20 MG DAILY 04/09 09 AC 04/10 PO 0727 Hydrochlorothiazide 12.5 MG DAILY 04/09 09 AC 04/10 PO 0824 Lisinopril 10 MG DAILY 04/09 0900 AC 04/10 PO 0824 Magnesium Sulfate 1 GM ONCE ONE 04/09 1345 DC 04/09 Dextrose/Water 100 ML IV 04/09 1744 1532 Metoprolol Tartrate 50 MG BID 04/09 2100 AC 04/10 PO 0824 Metoprolol Tartrate 25 MG ONCE ONE 04/09 1315 DC 04/09 PO 04/09 1316 1526 Metoprolol Tartrate 25 MG BID 04/08 1715 DC 04/09 PO 0801 Rivaroxaban 20 MG DAILY 04/09 1310 AC 04/10 PO 0824 Results Last 48 Hrs of Labs/Mics: Laboratory Tests 04/10/18 0617: Anion Gap 9, Estimated GFR > 60, BUN/Creatinine Ratio 24.4, Magnesium 2.0 04/09/18 1122: Anion Gap 12, Estimated GFR > 60, BUN/Creatinine Ratio 22.2 04/09/18 0125: Magnesium 1.8, Troponin I 0.02 04/08/18 2030: Troponin I 0.02 04/08/18 1312: Anion Gap 13, Estimated GFR > 60, BUN/Creatinine Ratio 18.9, Glucose 103 H, Calcium 9.4, Magnesium 1.7, Total Bilirubin 0.6, AST 20, ALT 37, Alkaline Phosphatase 86, Troponin I 0.02, Total Protein 7.0, Albumin 4.1, Globulin 2.9, Albumin/Globulin Ratio 1.4, TSH &T3 &Free T4 Intrp 1.370, CBC w Diff NO MAN DIFF REQ, RBC 4.76, MCV 87.8, MCH 29.0, MCHC 33.0, RDW 13.0, MPV 7.8, Gran % 76.7 H, Lymphocytes % 16.1 L, Monocytes % 6.6, Eosinophils % 0.4, Basophils % 0.2, Absolute Granulocytes 5.9, Absolute Lymphocytes 1.2, Absolute Monocytes 0.5, Absolute Eosinophils 0, Absolute Basophils 0 Recent Imaging Studies: Left ventricular cavity size normal. Left ventricular wall thickness mildly increased. Mildly reduced global left ventricular systolic function. Mildly abnormal left ventricular ejection fraction estimated at 40-45%. Right ventricle not well visualized, grossly normal. Mild right atrial dilatation. Moderate left atrial dilatation. No pericardial effusion. Assessment/Plan Assessment/Plan In summary this 60-year-old female is following problems 1. New onset atrial fibrillation with concern for possible new onset LV dysfunction 2. Hyperlipidemia with statin intolerance started on Praluent 3. History of hypertension 4. History of depression 5. History of colorectal cancer with prior resection 6. Overweight Her ventricular rate is still rapid. We will increase metoprolol 50 mg every 8 hours. Will also oral digoxin 0.25 mg twice a day for 2 days thereafter 0.125 mg a day. Will schedule for tentative GARETH cardioversion tomorrow if patient agreeable. Continue Xarelto. Continue telemetry? Yes
[2018-04-10 14:31] VITALS: BP 110/76
[2018-04-10 23:18] VITALS: BP 118/100
[2018-04-11 06:43] VITALS: BP 136/80
--- NOTE | 2018-04-11 07:01 | PN- Housestaff ---
[facility]: Subjective Follow-up For: Near Syncope Tele-Events Since Last Visit: Mc with HR 82-123. Subjective: Feels well. Has no complaints. States that occasionally she feels palpitations. No further episodes of shortness of breath. Looks forward to go home. Review of Systems Constitutional: Reports: no symptoms. Objective Last 24 Hrs of Vital Signs/I&O Vital Signs Date Time Temp Pulse Resp B/P B/P Pulse O2 O2 Flow FiO2 Mean Ox Delivery Rate 04/11 0643 98.2 94 20 136/80 95 Room Air 04/11 0542 103 134/80 04/10 2318 98.0 80 16 118/100 91 Room Air 04/10 2023 87 108/70 04/10 202 87 108/70 04/10 1431 98.3 82 20 110/76 99 Room Air 04/10 1402 112 118/80 04/10 1147 115 118/80 04/10 0824 143 118/80 04/10 0824 143 118/80 Intake & Output 04/11 0800 04/11 0000 04/10 1600 Intake Total 240 600 Output Total Balance 240 600 Intake, Oral 240 600 Number 1 Bowel Movements Patient 265 lb Weight Physical Exam General Appearance: Alert, Oriented X3, Cooperative, No Acute Distress Skin: No Rashes, No Breakdown Skin Temp/Moisture Exam: Warm/Dry Sepsis Skin Exam (color): Normal for Ethnicity HEENT: Atraumatic Cardiovascular: Normal S1, Normal S2, irregular Lungs: Clear to Auscultation, Normal Air Movement Abdomen: Soft, No Tenderness Neurological: Normal Speech Extremities: No Edema Last 24 Hrs of Lab/Otto Results Last 24 Hrs of Labs/Mics: Laboratory Tests 04/11/18 0645: Sodium Pending, Potassium Pending, Chloride Pending, Carbon Dioxide Pending, Anion Gap Pending, BUN Pending, Creatinine Pending, BUN/Creatinine Ratio Pending , Magnesium Pending, CBC w Diff Pending, WBC Pending, RBC Pending, Hgb Pending, Hct Pending, MCV Pending, MCH Pending, MCHC Pending, RDW Pending, Plt Count Pending, MPV Pending Assessment/Plan Assessment: 68 yo F with PMH of varicose veins, hyperlipidemia, depression was sent to the ED by her varnish mixer for evaluation. In the ED the patient received IV 5mg metoprolol x1 and IV 2.5mg metoprolol x1. Assessment: 1. New Onset Atrial Fibrilliation 2. Prolonged QTc of 498 3. History of Hyperlipidemia 4. History of Depression Plan: * Continue monitoring on telemetry. * ACS was ruled out with serial trops and EKGs on admission * Continue metoprolol 50mg TID. * PO Digoxin 0.25mg BID today and 0.125mg tomorrow. * Continue Xarelto 20mg daily. * Echocardiogram - abnormal LVEF at 40-45%. * GARETH today for cardioversion. * Avoid QTc prolonging agents. * Continue Lexapro, HCTZ and Lisinopril. * Diet: Regular * DVT Prophylaxis: On Xarelto * Code: Full Code Problem List: 1. A-fib Pain Ratin Pain Location: none Pain Goal: Remain pain free Pain Plan: none Tomorrow's Labs & Rationales: BEP, Mg Peggy FIGUEROA,Elida 04/11/18 0933: Attending MD Review Statement Attending Statement Attending MD Statement: examined this patient, discuss w/resident/PA/COMMUNITY HEALTH EDUCATOR, agreed w/resident/PA/COMMUNITY HEALTH EDUCATOR, reviewed EMR data (avail), discussed with nursing, discussed with case mgmt, reviewed images Attending Assessment/Plan: Patient is doing well. She is nervous about the procedure today. She is a 68- year-old with morbid obesity with BMI of 40 was here with new onset rapid atrial fibrillation. Because of her borderline blood pressure and her very rapid heart rate, the plan is a GARETH cardioversion today. She is on the metoprolol at 150 mg a day with the dig, hydrochlorothiazide and JUMA inhibitor. She also has systolic heart failure with an EF of 40-45%. And will follow-up after GARETH cardioversion.
[2018-04-11 08:04] LABS: ABSOLUTE BASOPHIL COUNT 0 /CUMM (0.0-0.2); ABSOLUTE EOSINOPHIL COUNT 0.1 /CUMM (0.0-0.7); ABSOLUTE GRANULOCYTE CT 6.1 /CUMM (1.4-6.5); ABSOLUTE LYMPH COUNT 1.1 /CUMM (1.2-3.4); ABSOLUTE MONOCYTE COUNT 0.6 /CUMM (0.10-0.60); BASOPHIL % 0.2 % (0.0-2.0); EOSINOPHIL % 0.9 % (0-5); HEMATOCRIT 41.2 % (37-47); MEAN CORPUSCULAR HGB 29.4 PG (27.0-31.0); MEAN CORPUSCULAR HGB CONC 33.3 G/DL (33.0-37.0); MEAN CORPUSCULAR VOLUME 88.3 FL (81.0-99.0); MEAN PLATELET VOLUME 8.1 FL (7.4-10.4); PLATELET COUNT 208 /CUMM (130-400); RBC DISTRIBUTION WIDTH 13.1 % (11.5-14.5); RED BLOOD CELL CT 4.67 /CUMM (4.20-5.40)
[2018-04-11 08:20] VITALS: BP 167/113
[2018-04-11 09:45] VITALS: BP 136/93
--- NOTE | 2018-04-11 12:08 | PN- Cardiology ---
Subjective Subjective: The patient is awake, alert, status post transesophageal echocardiogram guided cardioversion The events of the last 24 hours as well as telemetry were reviewed. Review of Systems: The review of systems is negative for chest pains, palpitations nor lightheadedness. The remainder of the 14 point review of systems is noncontributory with the exception of above. Objective Vital Signs and I&Os Vital Signs Date Time Temp Pulse Resp B/P B/P Pulse O2 O2 Flow FiO2 Mean Ox Delivery Rate 04/11 0945 96 136/93 04/11 0820 105 167/113 04/11 0817 105 167/113 04/11 0817 105 167/113 04/11 0643 98.2 94 20 136/80 95 Room Air 04/11 0542 103 134/80 04/10 2318 98.0 80 16 118/100 91 Room Air 04/10 2023 87 108/70 04/10 2022 87 108/70 04/10 1431 98.3 82 20 110/76 99 Room Air 04/10 1402 112 118/80 Intake & Output 04/11 0800 04/11 0000 04/10 1600 04/10 0000 Intake Total 240 600 50 390 Output Total Balance 240 600 50 390 Intake, IV 100 Intake, Oral 240 600 50 290 Number 1 Bowel Movements Patient 265 lb 265 lb Weight Weight Bed scale Measurement Method Physical Exam: General: Nontoxic, no apparent distress. HEENT: Sclera and conjunctiva within normal limits, without xanthelasmas. Neck: Carotids 2+ without bruits. Respiratory: Clear to auscultation, air movement is good, without accessory respiratory muscle use. Heart: Regular rate and rhythm, without murmurs, without JVD. Abdomen: Soft, nontender, no masses, normoactive bowel sounds. Extremities: Without clubbing, cyanosis, without edema. Neuro: Nonfocal exam, strength, 5 out of 5 Skin: Within normal limits without lesions. Psych: Mood and affect: Normal Current Medications: Current Medications Sig/Crystal Start time Last Medication Dose Route Stop Time Status Admin Acetaminophen 650 MG Q6P PRN 04/11 0830 AC PO Acetaminophen 650 MG ONCE ONE 04/11 0830 DC 04/11 PO 04/11 0831 0847 Digoxin 0.25 MG BID 04/10 1000 AC 04/11 PO 04/11 2101 0817 Docusate Sodium 100 MG DAILY 04/10 0900 AC 04/10 PO 0824 Escitalopram Oxalate 20 MG DAILY 04/09 09 AC 04/11 PO 0817 Hydrochlorothiazide 12.5 MG DAILY 04/09 09 AC 04/11 PO 0816 Lidocaine 0 .STK-MED ONE 04/11 1022 DC TOP Lisinopril 10 MG DAILY 04/09 0900 AC 04/11 PO 0817 Metoprolol Tartrate 50 MG Q8 04/10 1400 AC 04/11 PO 0542 Potassium Chloride 40 MEQ ONCE ONE 04/11 0945 DC PO 04/11 0946 Potassium Chloride 20 MEQ ONCE ONE 04/10 1215 DC 04/10 PO 04/10 1216 1404 Rivaroxaban 20 MG DAILY 04/09 1310 AC 04/11 PO 0817 Results Last 48 Hrs of Labs/Mics: Laboratory Tests 04/11/18 0645: Anion Gap 9, Estimated GFR > 60, BUN/Creatinine Ratio 22.2, Magnesium 1.9, CBC w Diff NO MAN DIFF REQ, RBC 4.67, MCV 88.3, MCH 29.4, MCHC 33.3, RDW 13.1, MPV 8.1 , Gran % 77.0 H, Lymphocytes % 14.4 L, Monocytes % 7.5, Eosinophils % 0.9, Basophils % 0.2, Absolute Granulocytes 6.1, Absolute Lymphocytes 1.1 L, Absolute Monocytes 0.6, Absolute Eosinophils 0.1, Absolute Basophils 0 04/10/18616: Anion Gap 9, Estimated GFR > 60, BUN/Creatinine Ratio 24.4, Magnesium 2.0 Assessment/Plan Assessment/Plan 1. New onset atrial fibrillation with concern for possible new onset LV dysfunction 2. Hyperlipidemia with statin intolerance started on Praluent 3. History of hypertension 4. History of depression 5. History of colorectal cancer with prior resection Atrial fibrillation: The patient has atrial fibrillation with a mild cardiomyopathy on presenting echocardiogram. A GARETH based cardioversion was performed today with return to normal sinus rhythm. The LV systolic function appears slightly improved, which may support an underlying tachycardia induced cardiomyopathy. This will be followed up with as an outpatient. We will continue her current medication regimen including full anticoagulation. Continue telemetry? Yes
[2018-04-11 13:03] VITALS: BP 112/78
[2018-04-11] MEDS ORDERED: XARELTO20 M2 PO (13:07)
[2018-04-11] MEDS ORDERED: METOPROLOL TART50 M1 PO (13:07)
--- NOTE | 2018-04-11 13:19 | Discharge Summary ---
Visit Information Visit Dates Admission Date: 04/08/18 Discharge Date: 04/12/18 Hospital Course Course Attending Physician: Peggy FIGUEROA,Elida Hernandez Primary Care Physician: Kath Maloney MD Hospital Course: Ms Alcantar is a 68 yo F with PMH of varicose veins, hyperlipidemia, depression was sent to the ED by her small animal veterinarian for evaluation of rapid and irregular heart rate. She was seen and treated for: Atrial Fibrilliation: On presentation to the ED the patient was found to be in Atrial fibrilliation with rapid ventricular rate. She initially received IV 5mg metoprolol x1 and IV 2.5mg metoprolol x1 which slowed her heart rate. She was admitted to the telemetry floor for monitoring of heart rhythm and rate. She was evaluated by Cardiology and continued on Xarelto for AC (the first dose had already been given at her small animal veterinarian office). PO metoprolol and digoxin was added to the regimen for control of her heart rate. She had a TTE which showed mildly reduced global left ventricular systolic function and mildly abnormal LVEF of 40-45%. On 04/11/18, she underwent a GARETH cardioversion (after ruling out thrombus) with successful return to normal sinus rhythm. Her LV systolic function appeared to be slightly improved thereafter, which may support an underlying tachycardia induced cardiomyopathy. She was discharged in stable disposition with recommendations to follow up with her PCP and small animal veterinarian within one week of discharge. Allergies: Uncoded Allergies: ENVIRONMENTAL ALLERGIES (08/19/11) Significant Procedures: SERVICE DATE: 04/09/18-06 EXAM TYPE: CARD - ECHOCARDIOGRAM FINDINGS Left Ventricle Left ventricular cavity size normal. Left ventricular wall thickness mildly increased. Mildly reduced global left ventricular systolic function. Mildly abnormal left ventricular ejection fraction estimated at 40-45%. Right Ventricle Right ventricle not well visualized, grossly normal. Right Atrium Mild right atrial dilatation. Left Atrium Moderate left atrial dilatation. Mitral Valve Mild mitral annular calcification. Mild mitral regurgitation. Aortic Valve Diffuse thickening (sclerosis) of the aortic valve cusps without reduced excursion. Tricuspid Valve Structurally normal tricuspid valve. Mild tricuspid regurgitation. Unable to estimate the right ventricular systolic pressure. Pulmonic Valve Pulmonic valve not well visualized, grossly normal. Pericardium No pericardial effusion. Great Vessels Normal size aortic root. CONCLUSIONS Left ventricular cavity size normal. Left ventricular wall thickness mildly increased. Mildly reduced global left ventricular systolic function. Mildly abnormal left ventricular ejection fraction estimated at 40-45%. Right ventricle not well visualized, grossly normal. Mild right atrial dilatation. Moderate left atrial dilatation. No pericardial effusion. SERVICE DATE: 04/08/18 EXAM TYPE: RAD - XRY-PORTABLE CHEST XRAY FINDINGS: The lungs are well expanded. There is no consolidation, edema, or effusion. No pneumothorax. The cardiac silhouette is enlarged, particularly at the right atrium. This is increased from the previous study 10 years prior. IMPRESSION: Clear lungs. Enlarged cardiac silhouette, particularly at the right atrium. Disposition Summary Disposition Principal Diagnosis: New Onset Atrial Fibrilliation Additional Diagnosis: Hyperlipidemia Anxiety Depression Discharge Disposition: home or self care Discharge Instructions General Discharge Information Code Status: Full Code Patient's Diet: Regular Patient's Activity: As tolerated Follow-Up Instructions/Appts: Please follow up with your small animal veterinarian and PCP within one week of discharge. Medications at Discharge Discharge Medications: Continue taking these medications: Escitalopram Oxalate (Escitalopram Oxalate) 20 MG TABLET 1 Tablet ORAL DAILY Qty = 90 Comments: Last Taken: 04/12/18 Time: 075 Lisinopril (Lisinopril) 10 MG TABLET 1 Tablet ORAL DAILY Qty = 90 Comments: Last Taken: 04/12/18 Time: 0751 Hydrochlorothiazide (Hydrochlorothiazide) 12.5 MG TABLET 1 Tablet ORAL DAILY Comments: Last Taken: 04/12/18 Time: 0751 Alirocumab (Praluent Pen) 75 MG/ML PEN.INJCTR 1 Inj Inject into fatty tissue EVERY 2 WEEKS Qty = 6 Comments: NOT GIVEN IN HOSPITAL Start taking the following new medications: Metoprolol Tartrate (Metoprolol Tartrate) 50 MG TABLET 1 Milligram ORAL TWICE DAILY Qty = 60 No Refills Instructions: . Comments: Last Taken: 04/12/18 Time: 0600 Digoxin (Digoxin) 125 MCG TABLET 1 Tablet ORAL DAILY Qty = 30 No Refills Instructions: . Comments: Last Taken: 04/11/18 Time: 2006 Rivaroxaban (Xarelto) 20 MG TABLET 1 Tablet ORAL DAILY Qty = 30 No Refills Instructions: with food. Comments: Last Taken: 04/12/18 Time: 0751 Copies To: Kath Maloney MD
[2018-04-11] MEDS ORDERED: DIGOXIN125 MCG PO (13:43)
[2018-04-11 14:50] VITALS: BP 96/60
--- NOTE | 2018-04-11 18:48 | ECHOCARDIOGRAM REPORT ---
SHEBA ARMENDARIZ Age: 68 : Gender: F Exam Date: 04/11/2018 10:31 Exam Location: [facility] Ht (in): 67 Wt (lb): 265 BSA: 2.44 BP: 118 / 80 Ordering Physician: Aimee Traore MD Referring Physician: Aimee Traore MD Technologist: Phan Green [facility] Room Number: Indications: Arrhythmia Rhythm: Technical Quality: Good Medications Ease of Transducer Insertion Complications None Technical Difficulty None FINDINGS Left Ventricle Normal LV chamber size and wall thickness. The estimated LVEF is 35-40%. There is global hypokinesis. Right Ventricle Normal right ventricular structure and function. Right Atrium Normal-appearing right atrium Left Atrium Normal-appearing left atrium. There is no thrombus seen within the left atrium LA Appendage No thrombus is seen within the left atrial appendage IA Septum Color flow is seen across the interatrial septum with a left-to- right direction. Visually, this appears as a small to medium sized atrial septal defect. An accurate calculation of the pulmonic/systemic shunt ratio could not be performed. Mitral Valve Normal-appearing mitral valve leaflet structure and function. There is mild mitral regurgitation. Aortic Valve Mildly sclerotic aortic valve leaflets with normal leaflet opening. There is trace aortic insufficiency. Tricuspid Valve Normal appearing tricuspid valve leaflets. There is trace to mild tricuspid regurgitation. Pulmonic Valve Normal-appearing pulmonic valvular leaflet structure and function Pericardium Normal pericardium with no pericardial effusion Great Vessels Normal great vessels CONCLUSIONS Normal LV chamber size and wall thickness. The estimated LVEF is 35-40%. There is global hypokinesis. Color flow is seen across the interatrial septum with a left-to- right direction. Visually, this appears as a small to medium sized atrial septal defect. An accurate calculation of the pulmonic/systemic shunt ratio could not be performed. There is mild mitral regurgitation. There is trace aortic insufficiency. There is trace to mild tricuspid regurgitation. No thrombus was seen within the left atrium nor left atrial appendage. Following the transesophageal echocardiogram, cardioversion was performed using 200 J of synchronized biphasic energy. The patient was converted to normal sinus rhythm. The patient tolerated the procedure well and recovered in short stay. Dmitry Martinez M.D. (Electronically Signed) Final Date: 11 Apr 2018 18:48 MEASUREMENTS (Male / Female) Normal Values 2D ECHO LVOT Diameter 1.9 cm RVOT Diameter 1.9 cm 2.5 - 2.9 cm RV Diastolic Area 2.8 cm 11 - 28 cm
--- NOTE | 2018-04-11 18:52 | Proc Note Cardiology ---
Cardiology Procedure Procedure Date: 04/11/18 Cardiology Procedure(s): electrical cardioversion Pre-Operative Diagnosis: Atrial fibrillation Post-Operative Diagnosis: Mild cardiomyopathy, normal sinus rhythm, PFO Estimated Blood Loss: none Anesthesia: moderate sedation Procedure Findings: The patient is noted to have atrial fibrillation as well as a mild cardiomyopathy which may be consistent with a tachycardia induced cardiomyopathy. A GARETH based cardioversion was scheduled to be performed. The GARETH demonstrated no intracardiac thrombus. The LVEF was approximately 35-40 % with global hypokinesis. Grossly normal valvular structure and function were noted. A small to medium sized ASD was noted. Conscious sedation by anesthesia was given. Following the GARETH, synchronized cardioversion was performed using 200 J of biphasic energy. The patient was successfully converted to normal sinus rhythm. The patient tolerated the procedure well and recovered in the short stay area.
[2018-04-11 22:03] VITALS: BP 100/62
--- NOTE | 2018-04-12 04:21 | PN- Housestaff ---
See Addendum Subjective Follow-up For: 1. New Onset Atrial Fibrilliation 2. Prolonged QTc of 498 3. History of Hyperlipidemia 4. History of Depression Tele-Events Since Last Visit: Sinus rhythm, 60-68. Subjective: Underwent GARETH cardioversion yesterday. Feels very well this morning. No palpitations. No chest pains. No fevers or chills. Other systems reviewed negative, exceptions above. Review of Systems Constitutional: Reports: see HPI. Objective Last 24 Hrs of Vital Signs/I&O Vital Signs Date Time Temp Pulse Resp B/P B/P Pulse O2 O2 Flow FiO2 Mean Ox Delivery Rate 04/11 2203 99.5 65 16 100/62 94 04/11 2158 78 100/62 04/11 2007 75 112/68 04/11 1450 97.9 72 18 96/60 93 04/11 1443 65 96/60 04/11 1303 98.0 60 20 112/78 93 Room Air 04/11 0945 96 136/93 04/11 0820 105 167/113 04/11 0817 105 167/113 04/11 0817 105 167/113 04/11 0643 98.2 94 20 136/80 95 Room Air 04/11 0542 103 134/80 Intake & Output 04/12 0800 04/12 0000 04/11 1600 Intake Total 240 600 Output Total Balance 240 600 Intake, Oral 240 600 Patient 266 lb Weight Physical Exam General Appearance: Alert, Oriented X3, Cooperative Neck: Supple, No JVD Cardiovascular: Regular Rate, Normal S1, irregular Lungs: Clear to Auscultation, Normal Air Movement Abdomen: Normal Bowel Sounds, Soft, No Tenderness Extremities: No Clubbing, No Cyanosis, No Edema Current Medications: Current Medications Sig/Crystal Start time Last Medication Dose Route Stop Time Status Admin Acetaminophen 650 MG Q6P PRN 04/11 0830 AC 04/11 PO 2003 Acetaminophen 650 MG ONCE ONE 04/11 0830 DC 04/11 PO 04/11 0831 0847 Digoxin 0.125 MG DAILY 04/12 900 AC PO Digoxin 0.25 MG BID 04/10 1000 DC 04/11 PO 04/11 210 2007 Docusate Sodium 100 MG DAILY 04/10 900 AC 04/11 PO 1440 Escitalopram Oxalate 20 MG DAILY 04/09 900 AC 04/11 PO 0817 Hydrochlorothiazide 12.5 MG DAILY 04/09 900 AC 04/11 PO 0816 Lidocaine 0 .STK-MED ONE 04/11 1022 DC TOP Lisinopril 10 MG DAILY 04/09 0900 AC 04/11 PO 0817 Metoprolol Tartrate 50 MG Q8 04/10 1400 AC 04/11 PO 2158 Potassium Chloride 40 MEQ ONCE ONE 04/11 0945 DC 04/11 PO 04/11 0946 1440 Rivaroxaban 20 MG DAILY 04/09 1310 AC 04/11 PO 0817 Last 24 Hrs of Lab/Otto Results Last 24 Hrs of Labs/Mics: Laboratory Tests 04/11/18 0645: Anion Gap 9, Estimated GFR > 60, BUN/Creatinine Ratio 22.2, Magnesium 1.9, CBC w Diff NO MAN DIFF REQ, RBC 4.67, MCV 88.3, MCH 29.4, MCHC 33.3, RDW 13.1, MPV 8.1 , Gran % 77.0 H, Lymphocytes % 14.4 L, Monocytes % 7.5, Eosinophils % 0.9, Basophils % 0.2, Absolute Granulocytes 6.1, Absolute Lymphocytes 1.1 L, Absolute Monocytes 0.6, Absolute Eosinophils 0.1, Absolute Basophils 0 Assessment/Plan Assessment: 68 yo F with PMH of varicose veins, hyperlipidemia, depression was sent to the ED by her cinetechnician for evaluation. In the ED the patient received IV 5mg metoprolol x1 and IV 2.5mg metoprolol x1. 1. New Onset Atrial Fibrilliation - ACS was ruled out with serial trops and EKGs on admission. Continue metoprolol 50mg TID. PO Digoxin 0.25mg BID today and 0.125mg tomorrow. Continue Xarelto 20mg daily. Echocardiogram - abnormal LVEF at 40-45%. S/p successful cardioversion to NSR on 04/11/18. 2. Prolonged QTc - Avoid QTc prolonging agents. . 3. History of Depression. Continue Lexapro. 4. HTN. Continue Lisinopril and HCTZ. Follow BEP. Full code Regular diet DVT ppx addressed by use of Xarelto. Problem List: 1. A-fib Pain Ratin Pain Location: None Pain Goal: Remain pain free Pain Plan: PRN Tomorrow's Labs & Rationales: Not needed.
[2018-04-12 06:55] VITALS: BP 106/68
--- NOTE | 2018-04-12 09:30 | PN- Cardiology ---
Subjective Subjective: * Lizeth feels well without shortness of breath, lightheadedness or palpitations. * sinus rhythm s/p DC cardioversion Objective Vital Signs and I&Os Vital Signs Date Time Temp Pulse Resp B/P B/P Pulse O2 O2 Flow FiO2 Mean Ox Delivery Rate 04/12 0752 48 98/54 04/12 0752 48 98/54 04/12 0655 98.2 65 16 106/68 95 Room Air 04/12 0600 65 106/68 04/11 2203 99.5 65 16 100/62 94 04/11 2158 78 100/62 04/11 2007 75 112/68 04/11 1450 97.9 72 18 96/60 93 04/11 1443 65 96/60 04/11 1303 98.0 60 20 112/78 93 Room Air 04/11 0945 96 136/93 Intake & Output 04/12 0800 04/12 0000 04/11 1600 04/11 0800 04/11 0000 Intake Total 240 600 240 Output Total Balance 240 600 240 Intake, Oral 240 600 240 Patient 266 lb 265 lb Weight Physical Exam: General: WD/overweight female in NAD; alert and oriented x 3 Neck: no JVD Heart: RRR w/o murmur Lungs: clear bilaterally Extremities: no edema Assessment/Plan Assessment/Plan * Patient is doing well and is stable for discharge from a cardiac standpoint. She will need to remain on Xarelto following successful cardioversion for at least 4 weeks. Continue digoxin at 0.125mg daily for rate control in the setting of a mild tachycardia induced cardiomyopathy. Change Metoprolol to 75mg BID and continue her current dose of Lisinopril and HCTZ. * Follow up with Dr. Woods in one week. Continue telemetry? No
[2018-04-12] MEDS ORDERED: METOPROLOL TART50 M1 PO ×2 (11:15→13:41)
--- NOTE | 2018-04-12 11:16 | Event Note ---
Event Note Event Note: Spoke with Dr. Stratton regarding discharging the patient home on metoprolol 75 twice a day as the patient was bradycardic to 48 this morning. Recommends decreasing the dose of metoprolol to 50 mg twice a day with outpatient follow-up with cardiology.
[2018-04-12 13:22] VITALS: BP 100/64
[2018-04-12] MEDS ORDERED: DIGOXIN125 MCG PO (13:41)
[2018-04-12] MEDS ORDERED: XARELTO20 M2 PO (13:41)
== END 2018-04-12 14:07 | DRG 309 ==
LOC: ERH 12:47 → ENRESERV 16:15 → 1NO 16:32 → ERHI 16:32 → ENTRNSPT 18:09 → EDTRNSPT 18:31 → EDTRNSPTSTS 18:31 → 1NO 18:33 → CMPTRNSPT 18:44 → 1NO 04-11 07:26 → ENTRNSPT 04-12 13:55 → EDTRNSPTSTS 04-12 14:02 → EDTRNSPT 04-12 14:02 → 1NO 04-12 14:07 → CMPTRNSPT 04-12 14:11
PROVIDERS: Emergency Medicine; Internal Medicine
PROC: 5A2204Z Restoration of Cardiac Rhythm, Single (ICD-10-PCS; principal; 2018-04-11)
PROC: B246ZZ4 Ultrasonography of Right and Left Heart, Transesophageal (ICD-10-PCS; principal; 2018-04-11)
DX: I48.91 Unspecified atrial fibrillation (principal); Z68.41 Body mass index [BMI] 40.0-44.9, adult; I42.8 Other cardiomyopathies; I50.20 Unspecified systolic (congestive) heart failure; I95.9 Hypotension, unspecified; E66.01 Morbid (severe) obesity due to excess calories; E78.5 Hyperlipidemia, unspecified; F32.9 Major depressive disorder, single episode, unspecified; Z85.038 Personal history of other malignant neoplasm of large intestine; Z90.49 Acquired absence of other specified parts of digestive tract; F41.9 Anxiety disorder, unspecified; R00.1 Bradycardia, unspecified; Z86.79 Personal history of other diseases of the circulatory system
CPT/HCPCS: 1NSP; 36415; 36592; 71045; 82436; 93005; 93010; 93306; 93325; 96374; 96376; J3490